=== PATIENT | female | born 1990 | race American Indian/Alaskan Native ===

== ENCOUNTER 2017-12-12 21:55 | Emergency (ER) | payer OTHER ==
[2017-12-12 22:32] VITALS: BP 120/96
[2017-12-13] MEDS ORDERED: TYLENOL ONE (01:10)
[2017-12-13] MEDS ORDERED: TYLENOL PO ONE (01:12)
--- NOTE | 2017-12-13 02:45 | Emergency Department Report ---
Minor Respiratory - HPI Chief Complaint: Upper Respiratory Infection Stated Complaint: FLU LIKE SYMPTOMS Time Seen by Provider: 12/13/17 02:23 Duration: 3 Days Pain Location: Other (headache 6/10) Severity: moderate Minor Respiratory: Yes Rhinorrhea (nasal), Yes Able to Tolerate Fluids, Yes Cough (dry cough), Yes Fever (patient states she had fever the first day but no fever since.), No Sore Throat, No Ear Pain, No Sick Contacts, No Hemoptysis, No Chest Pain, No Shortness of Breath Other History: Patient here with her kids report that she has headache, fever cough, nasal congestion that started 3 days ago. Fever started on the first day and went away. She said she took NyQuil and she is feeling better but she thinks her kids got whatever she had. Headache is 6 out of 10 and comes and goes. Located frontally. Denies any shortness of breath or chest pain. Headache is better after taking NyQuil and Tylenol at home. Headache is worse with coughing. ED Review of Systems ROS: Stated complaint: FLU LIKE SYMPTOMS Other details as noted in HPI Comment: All other systems reviewed and negative Constitutional: chills, fever Eyes: denies: eye pain, eye discharge ENT: congestion. denies: ear pain, throat pain, dental pain, epistaxis Respiratory: cough. denies: orthopnea, shortness of breath, SOB with exertion, SOB at rest, stridor, wheezing Cardiovascular: denies: chest pain, palpitations, dyspnea on exertion, orthopnea , edema, syncope, paroxysmal nocturnal dyspnea ED Past Medical Hx - Past Medical History Previous Medical History?: No - Surgical History Past Surgical History?: No - Social History Smoking Status: Never Smoker Substance Use Type: None - Medications Home Medications: Home Medications Medication Instructions Recorded Confirmed Last Taken Type Acetaminophen [Non-Aspirin Pain 500 mg PO Q6H PRN #12 tablet 12/13/17 Unknown Rx Relief] Benzonatate [Tessalon Perle] 100 mg PO Q8H PRN #15 capsule 12/13/17 Unknown Rx Cetirizine HCl [ZyrTEC] 10 mg PO QAM 14 Days #14 capsule 12/13/17 Unknown Rx Fluticasone [Flonase] 1 spray NS QDAY 14 Days #1 bottle 12/13/17 Unknown Rx Minor Respiratory Exam - Exam General: Vital signs noted. No distress. Alert and acting appropriately. This is a 27-year-old female well-nourished well-developed in no acute distress. HEENT: Yes Moist Mucous Membranes, Yes Rhinorrhea (congestion with erythema), No Pharyngeal Erythema (NO [employer] SCIENCE), No Pharyngeal Exudates (ORAL AIRWAY PATENT), No Conjuctival Injection, No Frontal Tenderness, No Maxillary Tenderness Ear: Neither TM Bulge (lateral TM congested), Neither TM Erythema, Neither EAC Pain, Neither EAC Discharge Neck: Yes Supple (full range of motion and no C-spine tenderness), No Adenopathy Lungs: Yes Good Air Exchange (ctab), Yes Cough (dry cough), No Wheezes, No Ronchi, No Stridor, No Labored Respirations, No Retractions, No Use of Accessory Muscles, No Other Abnormal Lung Sounds Heart: Yes Regular (S1-S2.), No Murmur Abdomen: Yes Normal Bowel Sounds (in all quadrants), No Tenderness (nontender to palpate in all quadrants), No Peritoneal Signs Skin: No Rash, No Edema Neurologic: Alert and oriented, no deficits. Neurological exam: Patient is alert and oriented 3, no facial drooping, speech is clear. GCS is 15. Gait is normal. No motor or sensory deficit. Reflexes are normal. Negative Romberg and negative pronator drift bilaterally. Musculoskeletal: Unremarkable. Extremities/MSK: Clubbing, cyanosis or edema. +2 pulses to all extremities and no neurovascular compromise. Patient with full range of motion to all her extremities. ED Course Vital Signs 12/12/17 22:29 Temperature 97.8 F Pulse Rate 22 L Respiratory 20 Rate Blood Pressure 120/96 O2 Sat by Pulse 97 Oximetry Vital Signs 12/12/1718 22:29 02:45 Temperature 97.8 F Pulse Rate 22 L 88 Respiratory 20 Rate Blood Pressure 120/96 O2 Sat by Pulse 97 Oximetry - Reevaluation(s) Reevaluation #1: 12/13/17 02:47 Patient received Tylenol 1 g by mouth in the emergency room. She was also orally hydrated and she says she is feeling a lot better ED Medical Decision Making - Medical Decision Making ED course: Patient here reports headache, cough congestion and fever over a 3 day period with fever resolved and over the first day. She took NyQuil and Tylenol at home and she is feeling better. Patient is here with her children reported that she thinks that children got sick because she was sick. She received Tylenol 1 g by mouth in emergency room for headache which relieved her headache. Patient orally hydrated in the emergency room. She is stable and says she feels better. Patient found to have sinus inflammation. This was discussed patient and she voiced understanding. Patient discharged home in stable condition with prescription for Zyrtec, Tylenol, Flonase and Tessalon Perles. Follow up with her primary care physician and if she does not have one I told her she can follow-up with outside Medical Center. Patient is neurologic intact. Critical care attestation.: If time is entered above; I have spent that time in minutes in the direct care of this critically ill patient, excluding procedure time. ED Disposition Clinical Impression: Cough with congestion of paranasal sinus Acute nonintractable headache Qualifiers: Headache type: unspecified Qualified Code(s): R51 - Headache Acute inflammation of sinus Qualifiers: Sinusitis location: unspecified location Recurrence: not specified as recurrent Qualified Code(s): J01.90 - Acute sinusitis, unspecified Disposition: DC-01 TO HOME OR SELFCARE Is pt being admited?: No Does the pt Need Aspirin: No Condition: Stable Instructions: Sinusitis (ED), Acute Cough (ED), Acute Headache (ED) Additional Instructions: Please increase her fluid intake Flush nostrils with saline nasal spray F/U with primary care physician as instructed Take Tylenol for pain and/or fever. Prescriptions: Acetaminophen [Non-Aspirin Pain Relief] 500 mg PO Q6H PRN #12 tablet PRN Reason: pain and/or fever Benzonatate [Tessalon Perle] 100 mg PO Q8H PRN #15 capsule PRN Reason: Cough Cetirizine HCl [ZyrTEC] 10 mg PO QAM 14 Days #14 capsule Fluticasone [Flonase] 1 spray NS QDAY 14 Days #1 bottle Referrals: PRIMARY CARE, [Primary Care Provider] - 12/17/17 [facility] [Outside] - 12/17/17 Forms: Work/School Release Form(ED)
== END 2017-12-13 03:49 | disposition home or self-care (01) ==
LOC: ED 21:55
DX: J01.90 Acute sinusitis, unspecified (principal); R51 Headache
CPT/HCPCS: 99282

== ENCOUNTER 2017-12-19 20:24 | Emergency (ER) | payer OTHER ==
[2017-12-19 22:24] VITALS: BP 126/72
[2017-12-19] MEDS ORDERED: PERCOCET 5/325 PO ONE (23:16)
[2017-12-19] MEDS ORDERED: DELTASONE PO ONE (23:17)
[2017-12-19] MEDS ORDERED: BENADRYL PO ONE (23:17)
--- NOTE | 2017-12-19 23:49 | Emergency Department Report ---
ED General Adult HPI - General Chief complaint: Animal Bite Stated complaint: LT MID FINGER PAIN Time Seen by Provider: 12/19/17 23:15 Source: patient Mode of arrival: Ambulatory Limitations: No Limitations - History of Present Illness Initial comments: 27-year-old -[place] female is brought in by her mother for concern of insect bite to the left hand yesterday. Patient reports that she woke up in the morning felt that something may have bitten her as day progressed swelling had worsened as well as pain. Patient denies any fever no chills. She reports that she feels the pain is traveling up her arm. She reports that is on her left hand between the first and second digit. She has no past medical history currently taking any medication besides Tylenol that was given at 3:30 in the Benadryl that was given last night. -: days(s) (1) Location: upper extremity Radiation: extremity Severity scale (0 -10): 10 Quality: burning, stabbing, constant Consistency: constant Improves with: none Associated Symptoms: denies other symptoms Treatments Prior to Arrival: other (Tylenol and Benadryl) - Related Data Previous Rx's Medication Instructions Recorded Last Taken Type Acetaminophen [Non-Aspirin Pain 500 mg PO Q6H PRN #12 tablet 12/13/17 Unknown Rx Relief] Benzonatate [Tessalon Perle] 100 mg PO Q8H PRN #15 capsule 12/13/17 Unknown Rx Cetirizine HCl [ZyrTEC] 10 mg PO QAM 14 Days #14 capsule 12/13/17 Unknown Rx Fluticasone [Flonase] 1 spray NS QDAY 14 Days #1 bottle 12/13/17 Unknown Rx Ibuprofen [Motrin 800 MG tab] 800 mg PO Q8HR PRN #30 tablet 12/20/17 Unknown Rx Sulfamethoxazole/Trimethoprim 1 each PO BID #20 tablet 12/20/17 Unknown Rx [Bactrim DS TAB] Allergies Allergy/AdvReac Type Severity Reaction Status Date / Time No Known Allergies Allergy Verified 11/21/15 07:56 ED Review of Systems ROS: Stated complaint: LT MID FINGER PAIN Other details as noted in HPI Constitutional: denies: chills, fever Eyes: denies: eye pain, eye discharge, vision change ENT: denies: ear pain, throat pain Respiratory: denies: cough, shortness of breath, wheezing Cardiovascular: denies: chest pain, palpitations Endocrine: no symptoms reported Gastrointestinal: denies: abdominal pain, nausea, diarrhea Genitourinary: denies: urgency, dysuria, discharge Musculoskeletal: other (left hand swelling) Skin: change in color (left hand swelling and redness), pruritus, other (pain to the left hand) Neurological: denies: headache, weakness, paresthesias Psychiatric: denies: anxiety, depression Hematological/Lymphatic: denies: easy bleeding, easy bruising ED Past Medical Hx - Past Medical History Previous Medical History?: No - Surgical History Past Surgical History?: No - Social History Smoking Status: Never Smoker Substance Use Type: None - Medications Home Medications: Home Medications Medication Instructions Recorded Confirmed Last Taken Type Acetaminophen [Non-Aspirin Pain 500 mg PO Q6H PRN #12 tablet 12/13/17 Unknown Rx Relief] Benzonatate [Tessalon Perle] 100 mg PO Q8H PRN #15 capsule 12/13/17 Unknown Rx Cetirizine HCl [ZyrTEC] 10 mg PO QAM 14 Days #14 capsule 12/13/17 Unknown Rx Fluticasone [Flonase] 1 spray NS QDAY 14 Days #1 bottle 12/13/17 Unknown Rx Ibuprofen [Motrin 800 MG tab] 800 mg PO Q8HR PRN #30 tablet 12/20/17 Unknown Rx Sulfamethoxazole/Trimethoprim 1 each PO BID #20 tablet 12/20/17 Unknown Rx [Bactrim DS TAB] ED Physical Exam - General Limitations: No Limitations General appearance: alert, in no apparent distress, other (tearful) - Head Head exam: Present: atraumatic, normocephalic - Eye Eye exam: Present: normal appearance - ENT ENT exam: Present: mucous membranes moist - Expanded Upper Extremity Exam Left Shoulder Exam: Present: normal inspection, full ROM Upper Arm exam: Present: normal inspection, full ROM Elbow exam: Present: normal inspection, full ROM Forearm Wrist exam: Present: normal inspection, full ROM Hand Wrist exam: Present: tenderness, swelling, erythema, other (pain greater in first and second digit with palpitation) Neuro motor exam: Present: wrist extension intact, thumb opposition intact, thumb adduction intact, fingers 2-5 abduction intact Vascular: Present: normal capillary refill. Absent: vascular compromise - Neurological Exam Neurological exam: Present: alert, oriented X3 - Psychiatric Psychiatric exam: Present: normal affect, normal mood - Skin Skin exam: Present: warm, dry, erythema (left dorsum hand) ED Course Vital Signs 12/19/17 22:21 Temperature 98.3 F Pulse Rate 85 Blood Pressure 126/72 O2 Sat by Pulse 99 Oximetry ED Medical Decision Making - Medical Decision Making Patient's been evaluated by this provider fast track. Discussed the patient of her pain medication x-ray Benadryl and prednisone. We'll reevaluate after having studies performed. Critical care attestation.: If time is entered above; I have spent that time in minutes in the direct care of this critically ill patient, excluding procedure time. ED Disposition Clinical Impression: Localized swelling on left hand Insect bite Qualifiers: Encounter type: initial encounter Qualified Code(s): W57.XXXA - Bitten or stung by nonvenomous insect and other nonvenomous arthropods, initial encounter Disposition: - TO HOME OR SELFCARE Is pt being admited?: No Does the pt Need Aspirin: No Condition: Stable Additional Instructions: Please take ibuprofen as prescribed. He can continue with the Benadryl over-the -counter. Please follow up with her primary care provider if symptoms persist or gets worse. I recommend elevating your hand he can apply ice. Prescriptions: Ibuprofen [Motrin 800 MG tab] 800 mg PO Q8HR PRN #30 tablet PRN Reason: Pain Sulfamethoxazole/Trimethoprim [Bactrim DS TAB] 1 each PO BID #20 tablet Referrals: PRIMARY CARE, [Primary Care Provider] - 3-5 Days your,provider [Other] - 3-5 Days Forms: Accompanied Note, Work/School Release Form(ED)
--- NOTE | 2017-12-20 00:17 | XRay Report ---
FINAL REPORT PROCEDURE: XR HAND 2V LT TECHNIQUE: Left hand radiographs, AP, lateral, and oblique views. CPT 10260 HISTORY: left hand swollen COMPARISON: No prior studies are available for comparison. FINDINGS: Fracture (s) and/or Dislocation(s): None . Alignment: Normal . Joint space(s): Normal . Soft tissues: There is generalized soft tissue swelling.. Bone mineralization: Normal . Foreign bodies: None . IMPRESSION: There is no acute bony abnormality. There is generalized soft tissue swelling..
== END 2017-12-20 01:25 | disposition home or self-care (01) ==
LOC: ED 20:24
DX: S60.562A Insect bite (nonvenomous) of left hand, initial encounter (principal); M79.89 Other specified soft tissue disorders; W57.XXXA Bitten or stung by nonvenomous insect and other nonvenomous arthropods, initial encounter; Y93.89 Activity, other specified; Y99.8 Other external cause status; Y92.89 Other specified places as the place of occurrence of the external cause
CPT/HCPCS: 73120; 99283; J7512

== ENCOUNTER 2017-12-21 06:03 | Emergency (ER) | payer OTHER ==
[2017-12-21] MEDS ORDERED: TORADOL ONE (06:17)
[2017-12-21] MEDS ORDERED: TORADOL IV ONE (06:24)
[2017-12-21 06:51] LABS: Basophils % (Auto) 0.1 % (0.0-1.8); Eosinophils % (Auto) 0.1 % (0.0-4.3); Hematocrit 29.8 % (30.3-42.9); Hemoglobin 9.9 gm/dl (10.1-14.3); Lymphocytes # (Auto) 1.7 K/mm3 (1.2-5.4); Lymphocytes % (Auto) 18.3 % (13.4-35.0); Mean Corpuscular HGB Conc 33 % (30-34); Mean Corpuscular Hemoglobin 28 pg (28-32); Mean Corpuscular Volume 85 fl (79-97); Monocytes # (Auto) 0.5 K/mm3 (0.0-0.8); Monocytes % (Auto) 5.5 % (0.0-7.3); Platelet Count 283 K/mm3 (140-440); Red Cell Distribution Width 16.6 % (13.2-15.2)
[2017-12-21 07:01] LABS: BUN/Creatinine Ratio 11; Blood Urea Nitrogen 8 mg/dL (7-17); Hemolysis Index 2
[2017-12-21] MEDS ORDERED: CLEOCIN 900 MG/50 mL 900 MG/50 ML BAG IV ONE (10:53)
[2017-12-21] MEDS ORDERED: ZOFRAN IV ONE (10:53)
[2017-12-21] MEDS ORDERED: NORCO 5/325 PO ONE (10:53)
[2017-12-21] MEDS ORDERED: MORPHINE IV ONE (10:53)
--- NOTE | 2017-12-21 10:59 | Emergency Department Report ---
- General Chief Complaint: Extremity Injury, Upper Stated Complaint: LT HAND PAIN/SWELLING Time Seen by Provider: 12/21/17 10:48 Source: patient, family Mode of arrival: Ambulatory Limitations: No Limitations - History of Present Illness Initial Comments: left hand finger infection, now with cellulitis small boil RLQ -: Gradual, week(s) (1) Extremity Location: Left: Hand Place: home Patient Tetanus UTD: No (greater than 5 years) Context: other (small pimple then worsened, seen in ED on Sunday, bactrim initiated) Associated Symptoms: pain - Related Data Previous Rx's Medication Instructions Recorded Last Taken Type Acetaminophen [Non-Aspirin Pain 500 mg PO Q6H PRN #12 tablet 12/13/17 Unknown Rx Relief] Benzonatate [Tessalon Perle] 100 mg PO Q8H PRN #15 capsule 12/13/17 Unknown Rx Cetirizine HCl [ZyrTEC] 10 mg PO QAM 14 Days #14 capsule 12/13/17 Unknown Rx Fluticasone [Flonase] 1 spray NS QDAY 14 Days #1 bottle 12/13/17 Unknown Rx Ibuprofen [Motrin 800 MG tab] 800 mg PO Q8HR PRN #30 tablet 12/20/17 Unknown Rx Sulfamethoxazole/Trimethoprim 1 each PO BID #20 tablet 12/20/17 Unknown Rx [Bactrim DS TAB] Cephalexin [Keflex] 500 mg PO Q6HR 10 Days #40 capsule 12/21/17 Unknown Rx oxyCODONE /ACETAMINOPHEN [Percocet 1 tab PO Q6HR PRN #15 tablet 12/21/17 Unknown Rx 5/325] Allergies Allergy/AdvReac Type Severity Reaction Status Date / Time No Known Allergies Allergy Verified 11/21/15 07:56 ED Review of Systems ROS: Stated complaint: LT HAND PAIN/SWELLING Other details as noted in HPI Comment: All other systems reviewed and negative Constitutional: denies: fever, malaise Respiratory: denies: cough Cardiovascular: denies: chest pain ED Past Medical Hx - Past Medical History Previous Medical History?: No - Surgical History Past Surgical History?: Yes Additional Surgical History: tubaligation - Social History Smoking Status: Never Smoker Substance Use Type: None - Medications Home Medications: Home Medications Medication Instructions Recorded Confirmed Last Taken Type Acetaminophen [Non-Aspirin Pain 500 mg PO Q6H PRN #12 tablet 12/13/17 Unknown Rx Relief] Benzonatate [Tessalon Perle] 100 mg PO Q8H PRN #15 capsule 12/13/17 Unknown Rx Cetirizine HCl [ZyrTEC] 10 mg PO QAM 14 Days #14 capsule 12/13/17 Unknown Rx Fluticasone [Flonase] 1 spray NS QDAY 14 Days #1 bottle 12/13/17 Unknown Rx Ibuprofen [Motrin 800 MG tab] 800 mg PO Q8HR PRN #30 tablet 12/20/17 Unknown Rx Sulfamethoxazole/Trimethoprim 1 each PO BID #20 tablet 12/20/17 Unknown Rx [Bactrim DS TAB] Cephalexin [Keflex] 500 mg PO Q6HR 10 Days #40 capsule 12/21/17 Unknown Rx oxyCODONE /ACETAMINOPHEN [Percocet 1 tab PO Q6HR PRN #15 tablet 12/21/17 Unknown Rx 5/325] ED Physical Exam - General Limitations: No Limitations General appearance: alert, in no apparent distress - Head Head exam: Present: atraumatic, normocephalic - Eye Eye exam: Present: normal appearance - ENT ENT exam: Present: mucous membranes moist - Neck Neck exam: Present: normal inspection - Respiratory Respiratory exam: Present: normal lung sounds bilaterally. Absent: respiratory distress, wheezes, rales, rhonchi - Cardiovascular Cardiovascular Exam: Present: regular rate, normal rhythm. Absent: systolic murmur, diastolic murmur, rubs, gallop - GI/Abdominal GI/Abdominal exam: Present: soft, normal bowel sounds. Absent: distended, tenderness, guarding, rebound - Extremities Exam Extremities exam: Present: normal inspection - Back Exam Back exam: Present: normal inspection - Neurological Exam Neurological exam: Present: alert, oriented X3 - Psychiatric Psychiatric exam: Present: normal affect, normal mood - Skin Skin exam: Present: warm, dry, intact, normal color. Absent: rash - Other Other exam information: 2 cm abscess proximal 3rd finger volar aspect swelling limited to proximal phalanx, mild hand edema without involvement of other fingers, 3rd finger held in flexed position, no fusiform swelling, no tenderness of the flexor tendon ED Course Vital Signs 12/21/17 12/21/17 12/21/17 06:05 06:26 11:13 Temperature 98 F 98.2 F Pulse Rate 105 H 93 H Respiratory 20 20 20 Rate Blood Pressure 126/88 Blood Pressure 139/101 [Right] O2 Sat by Pulse 99 98 Oximetry - I & D Left Finger Type of Procedure: Simple Site: left finger middle, proximal phalanx Blade Size: 11 I & D Procedure: betadine prep Progress: Verbal consent explaining the risks alternatives benefits obtained per patient. Patient consented to digital block and incision and drainage. I used 5 mL of 1% lidocaine without epinephrine to anesthetize the area performed digital block. The abscess was draining spontaneously prior to injection friom 5 mm skin opening just proximal to the flexor crease at the MCP. After injection copious amount of purulent drainage expressed from the wound. I made a superficial 1 cm horizontal incision and use sterile instrument (needle taylor) to gently break up inoculations approximately 5 mL total PURULENCE drainage was expressed. Nurse provided a sterile bandage and dressing. Wound culture was obtained. After procedure, patient was able to flex at the MCP/PIP/DIP. ED Medical Decision Making - Lab Data Result diagrams: 12/21/17 06:37 12/21/17 06:37 - Medical Decision Making Ms. Sexton has a finger abscess with hand cellulitis. No indication of flexor tenosynovitis at this time. Given IV clindamycina and tdap. I&D performed with evacuated 5 ml of pus. Patient will return in 2 days for skin check. I encouraged her to continue Bactrim. I have prescribed Percocet and Keflex. Patient understands that she has a small area of cellulitis with small pustule in the right lower quadrant which will be addressed with the same antibiotics. Critical care attestation.: If time is entered above; I have spent that time in minutes in the direct care of this critically ill patient, excluding procedure time. ED Disposition Clinical Impression: Abscess of finger of left hand, Cellulitis and abscess of hand, Cellulitis of trunk Disposition: DC-01 TO HOME OR SELFCARE Is pt being admited?: No Does the pt Need Aspirin: No Condition: Stable Instructions: Abscess (ED), Cellulitis (ED) Additional Instructions: Please return to ED in 2 days for a skin check. Prescriptions: Cephalexin [Keflex] 500 mg PO Q6HR 10 Days #40 capsule oxyCODONE /ACETAMINOPHEN [Percocet 5/325] 1 tab PO Q6HR PRN #15 tablet PRN Reason: Pain Time of Disposition: 12:26
[2017-12-21] MEDS ORDERED: BOOSTRIX IM ONE (11:00)
[2017-12-21] MEDS ORDERED: XYLOCAINE 1% 20 mL INFILTRATI ONE (11:33)
[2017-12-21] MEDS ORDERED: MOTRIN PO ONE (12:15)
[2017-12-21 12:58] VITALS: BP 128/81
== END 2017-12-21 12:58 | disposition home or self-care (01) ==
LOC: ED 06:03
DX: L02.512 Cutaneous abscess of left hand (principal); L03.114 Cellulitis of left upper limb; L03.319 Cellulitis of trunk, unspecified; Z98.51 Tubal ligation status
CPT/HCPCS: 10060; 36415; 80048; 84703; 85025; 87076; 87116; 87186; 90471; 90715; 96365; 96375; 99283; J1885; J2270; J2405

== ENCOUNTER 2020-05-10 10:58 | Emergency (ER) | payer SELFPAY ==
[2020-05-10 11:06] VITALS: BP 127/92
[2020-05-10] MEDS ORDERED: HYDROcodone/ACETAMINOPHEN 10-325MG TAB PO ONE (11:18)
--- NOTE | 2020-05-10 11:23 | Emergency Department Report ---
ED Lower Extremity HPI - General Chief Complaint: Extremity Injury, Lower Stated Complaint: RIGHT KNEE PAIN Time Seen by Provider: 05/10/20 11:13 Source: patient Mode of arrival: Wheelchair Limitations: No Limitations - History of Present Illness Initial Comments: This is a 29-year-old female nontoxic, well nourished in appearance, no acute signs of distress presents to the ED with c/o of right knee pain. Patient stated she had a fall and injured 2 days ago. Patient denies any other trauma or injuries. Denies decreased ROM, joint swelling, redness, or abnormal gait. Denies any fever, chills, nausea, vomiting, headache, stiff neck, chest pain or shortness of breath. Patient denies any numbness or tingling. Denies any allergies. MD Complaint: knee injury -: days(s) Injury: Knee: Right Severity: mild Severity scale (0 -10): 8 Improves With: immobilization Worsens With: weight bearing, movement, palpation Context: fall Associated Symptoms: snap/pop sensation, swelling, unable to bear weight. denies: numbness, tingling, able to partially bear weight - Related Data Previous Rx's Medication Instructions Recorded Last Taken Type Acetaminophen [Non-Aspirin Pain 500 mg PO Q6H PRN #12 tablet 12/13/17 Unknown Rx Relief] Benzonatate [Tessalon Perle] 100 mg PO Q8H PRN #15 capsule 12/13/17 Unknown Rx Cetirizine HCl [ZyrTEC] 10 mg PO QAM 14 Days #14 capsule 12/13/17 Unknown Rx Fluticasone [Flonase] 1 spray NS QDAY 14 Days #1 bottle 12/13/17 Unknown Rx Ibuprofen [Motrin 800 MG tab] 800 mg PO Q8HR PRN #30 tablet 12/20/17 Unknown Rx Sulfamethoxazole/Trimethoprim 1 each PO BID #20 tablet 12/20/17 Unknown Rx [Bactrim DS TAB] cephALEXin [Keflex] 500 mg PO Q6HR 10 Days #40 capsule 12/21/17 Unknown Rx oxyCODONE /ACETAMINOPHEN [Percocet 1 tab PO Q6HR PRN #15 tablet 12/21/17 Unknown Rx 5/325] Naproxen 500 mg PO Q12H PRN #12 tablet 05/10/20 Unknown Rx Allergies Allergy/AdvReac Type Severity Reaction Status Date / Time No Known Allergies Allergy Verified 11/21/15 07:56 ED Review of Systems ROS: Stated complaint: RIGHT KNEE PAIN Other details as noted in HPI Constitutional: denies: chills, fever Eyes: denies: eye pain, eye discharge, vision change ENT: denies: ear pain, throat pain Respiratory: denies: cough, shortness of breath, wheezing Cardiovascular: denies: chest pain, palpitations Endocrine: no symptoms reported Gastrointestinal: denies: abdominal pain, nausea, diarrhea Genitourinary: denies: urgency, dysuria, discharge Musculoskeletal: denies: back pain, joint swelling, arthralgia Skin: denies: rash, lesions Neurological: denies: headache, weakness, paresthesias Psychiatric: denies: anxiety, depression Hematological/Lymphatic: denies: easy bleeding, easy bruising ED Past Medical Hx - Past Medical History Previous Medical History?: No - Surgical History Past Surgical History?: Yes Additional Surgical History: tubal ligation. C section - Social History Smoking Status: Never Smoker Substance Use Type: None - Medications Home Medications: Home Medications Medication Instructions Recorded Confirmed Last Taken Type Acetaminophen [Non-Aspirin Pain 500 mg PO Q6H PRN #12 tablet 12/13/17 Unknown Rx Relief] Benzonatate [Tessalon Perle] 100 mg PO Q8H PRN #15 capsule 12/13/17 Unknown Rx Cetirizine HCl [ZyrTEC] 10 mg PO QAM 14 Days #14 capsule 12/13/17 Unknown Rx Fluticasone [Flonase] 1 spray NS QDAY 14 Days #1 bottle 12/13/17 Unknown Rx Ibuprofen [Motrin 800 MG tab] 800 mg PO Q8HR PRN #30 tablet 12/20/17 Unknown Rx Sulfamethoxazole/Trimethoprim 1 each PO BID #20 tablet 12/20/17 Unknown Rx [Bactrim DS TAB] cephALEXin [Keflex] 500 mg PO Q6HR 10 Days #40 capsule 12/21/17 Unknown Rx oxyCODONE /ACETAMINOPHEN [Percocet 1 tab PO Q6HR PRN #15 tablet 12/21/17 Unknown Rx 5/325] Naproxen 500 mg PO Q12H PRN #12 tablet 05/10/20 Unknown Rx ED Physical Exam - General Limitations: No Limitations General appearance: alert, in no apparent distress - Head Head exam: Present: atraumatic, normocephalic - Eye Eye exam: Present: normal appearance - Neck Neck exam: Present: normal inspection, full ROM. Absent: tenderness, meningismus, lymphadenopathy - Extremities Exam Extremities exam: Present: full ROM, tenderness, normal capillary refill. Absent: joint swelling, calf tenderness - Expanded Lower Extremity Exam Right Hip exam: Present: normal inspection, full ROM. Absent: tenderness, swelling Upper Leg exam: Present: normal inspection, full ROM. Absent: tenderness, swelling Knee exam: Present: full ROM, tenderness, swelling, ecchymosis, full knee extension. Absent: abrasion, laceration, deformity, crepidus, dislocation, erythema, effusion, pain w/ pronation/supination, posterior draw sign, pain/laxity with valgus, pain/laxity with varus Lower Leg exam: Present: normal inspection, full ROM. Absent: tenderness, swelling Ankle exam: Present: normal inspection, full ROM. Absent: tenderness, swelling Foot/Toe exam: Present: normal inspection, full ROM. Absent: tenderness, swelli ng Neuro vascular tendon exam: Present: no vascular compromise Gait: Positive: unable to bear weight - Back Exam Back exam: Present: normal inspection, full ROM. Absent: tenderness, CVA tenderness (R), CVA tenderness (L), muscle spasm, paraspinal tenderness, vertebral tenderness, rash noted - Neurological Exam Neurological exam: Present: alert, oriented X3, normal gait - Psychiatric Psychiatric exam: Present: normal affect, normal mood - Skin Skin exam: Present: warm, dry, intact, normal color. Absent: rash ED Course Vital Signs 05/10/20 05/10/20 05/10/20 11:03 11:08 11:22 Temperature 98.4 F 98.4 F 98.4 F Pulse Rate 89 108 H Respiratory 18 18 18 Rate Blood Pressure 127/92 127/92 Blood Pressure 127/92 [Right] O2 Sat by Pulse 100 100 Oximetry 05/10/20 12:11 Temperature Pulse Rate Respiratory 18 Rate Blood Pressure Blood Pressure [Right] O2 Sat by Pulse Oximetry - Reevaluation(s) Reevaluation #1: 05/10/20 11:22 Patient is speaking in full sentences with no signs of distress noted. ED Lower Extremity MDM - Radiology Data Referring Physician: GUY MERCER Patient Name: MIRTHA KULKARNI Date of : 1990 Sex: Female Report Date: 2020-05-10 Report Status: Finalized [facility] [address] [place] [address] XRay Report Signed Patient: MIRTHA KULKARNI MR#: [id number] : 1990 Acct:[id number] Age/Sex: 29 / F ADM Date: 05/10/20 Loc: ED Attending Dr: Ordering Physician: GUY MERCER NP Date of Service: 05/10/20 Procedure(s): XR knee 3V RT Accession Number(s): [id number] cc: GUY MERCER NP Fluoro Time In Minutes: RIGHT KNEE 3 VIEWS INDICATION: knee pain. COMPARISON: No relevant prior imaging study available. FINDINGS: No acute fracture or dislocation is seen. Moderate joint effusion is noted. Significant degenerative changes. IMPRESSION: 1. Moderate joint effusion. No acute skeletal abnormality. Signer Name: Isacc Jenkins MD Signed: 05/10/2020 12:22 PM Workstation Name: [id number] Transcribed By: CHILANGO Dictated By: Isacc Jenkins MD Electronically Authenticated By: Isacc Jenkins MD Signed Date/Time: 05/10/20 1222 DD/ 1221 TD/TT: - Medical Decision Making This is a 29-year-old female that presents with right knee strain. Patient is stable and was examined by me. Patient has a knee immbolizer and crutches presnet. Patient received norco which stated symptoms of pain is well managed and mother will drive the patien home after discharge due to possible drowiness. Pt notified of the xray results with no quesitons noted by the patient. Patient was instructed to Follow-up with a orthopedic doctor in 3-5 days or if symptoms worsen and continue return to emergency room as soon as possible. At time of discharge, the patient does not seem toxic or ill in appearance. No acute signs of distress noted. Patient agrees to discharge treatment plan of care. No further questions noted by the patient. Critical care attestation.: If time is entered above; I have spent that time in minutes in the direct care of this critically ill patient, excluding procedure time. ED Disposition Clinical Impression: Strain of right knee Qualifiers: Encounter type: initial encounter Qualified Code(s): S86.911A - Strain of unspecified muscle(s) and tendon(s) at lower leg level, right leg, initial encounter Disposition: TO HOME OR SELFCARE Is pt being admited?: No Does the pt Need Aspirin: No Condition: Stable Instructions: Knee Pain (ED), Knee Immobilizer (ED), RICE Therapy (ED) Additional Instructions: Patient was instructed to Follow-up with a orthopedic doctor in 3-5 days or if symptoms worsen and continue return to emergency room as soon as possible. no physical activity until cleared by Orthopedic doctor. Prescriptions: Naproxen 500 mg PO Q12H PRN #12 tablet PRN Reason: Pain , Severe (7-10) Referrals: PRIMARY CARE, [Primary Care Provider] - 3-5 Days XANDER CARIAS MD [Staff Physician] - 3-5 Days Forms: Work/School Release Form(ED)
--- NOTE | 2020-05-10 12:26 | XRay Report ---
RIGHT KNEE 3 VIEWS INDICATION: knee pain. COMPARISON: No relevant prior imaging study available. FINDINGS: No acute fracture or dislocation is seen. Moderate joint effusion is noted. Significant degenerative changes. IMPRESSION: 1. Moderate joint effusion. No acute skeletal abnormality. Signer Name: Isacc Jenkins MD Signed: 05/10/2020 12:22 PM Workstation Name: [id number]
== END 2020-05-10 13:00 | disposition home or self-care (01) ==
LOC: ED 10:58
DX: S86.911A Strain of unspecified muscle(s) and tendon(s) at lower leg level, right leg, initial encounter (principal); Z79.899 Other long term (current) drug therapy; Z98.890 Other specified postprocedural states; Z98.51 Tubal ligation status; W18.30XA Fall on same level, unspecified, initial encounter; Y93.89 Activity, other specified; Y92.89 Other specified places as the place of occurrence of the external cause; Y99.8 Other external cause status

== ENCOUNTER 2021-02-28 11:35 | Emergency (ER) | payer OTHER ==
[2021-02-28 12:11] VITALS: BP 126/85
--- NOTE | 2021-02-28 12:17 | Emergency Department Report ---
ED Lower Extremity HPI - General Chief Complaint: Extremity Injury, Lower Stated Complaint: RT KNEE PAINS Time Seen by Provider: 02/28/21 11:46 Source: patient Mode of arrival: Ambulatory Limitations: No Limitations - History of Present Illness Initial Comments: This is a 30-year-old female nontoxic, well nourished in appearance, no acute signs of distress presents to the ED with c/o of pain medication for acute on chronic right knee pain 9 months. Patient stated had a injury 9 months ago. Patient does follow-up with a orthopedic doctor but stated was unable to make an appointment for pain control. Patient does have a knee immobilizer that she typically wears. 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 Patient otherwise denies any acute trauma or injuries. Denies any calf pain or leg swelling. Patient denies any numbness, tingling, fever, chills, nausea, vomiting, chest pain, shortness of breath, headache, stiff neck. Patient denies any joint swelling or joint redness. Patient denies decreased range of motion. Patient stated has decreased gait due to pain. Patient denies any allergies or significant past medical history. MD Complaint: knee injury -: month(s) Injury: Knee: Right Severity scale (0 -10): 3 Improves With: immobilization Worsens With: weight bearing, movement, palpation Associated Symptoms: ambulatory. denies: snap/pop sensation, swelling, numbness, tingling, unable to bear weight, able to partially bear weight - Related Data Previous Rx's Medication Instructions Recorded Last Taken Type Acetaminophen [Non-Aspirin Pain 500 mg PO Q6H PRN #12 tablet 12/13/17 Unknown Rx Relief] Benzonatate [Tessalon Perle] 100 mg PO Q8H PRN #15 capsule 12/13/17 Unknown Rx Cetirizine HCl [ZyrTEC] 10 mg PO QAM 14 Days #14 capsule 12/13/17 Unknown Rx Fluticasone [Flonase] 1 spray NS QDAY 14 Days #1 bottle 12/13/17 Unknown Rx Ibuprofen [Motrin 800 MG tab] 800 mg PO Q8HR PRN #30 tablet 12/20/17 Unknown Rx Sulfamethoxazole/Trimethoprim 1 each PO BID #20 tablet 12/20/17 Unknown Rx [Bactrim DS TAB] cephALEXin [Keflex] 500 mg PO Q6HR 10 Days #40 capsule 12/21/17 Unknown Rx oxyCODONE /ACETAMINOPHEN [Percocet 1 tab PO Q6HR PRN #15 tablet 12/21/17 Unknown Rx 5/325] HYDROcodone/APAP 10-325 [[place] 1 each PO Q8HR PRN #6 tablet 05/10/20 Unknown Rx 10/325] Naproxen 500 mg PO Q12H PRN #12 tablet 05/10/20 Unknown Rx Naproxen 500 mg PO Q12H PRN #12 tablet 02/28/21 Unknown Rx Allergies Allergy/AdvReac Type Severity Reaction Status Date / Time No Known Allergies Allergy Verified 02/28/21 11:47 ED Review of Systems ROS: Stated complaint: RT KNEE PAINS Other details as noted in HPI Comment: All other systems reviewed and negative Constitutional: denies: chills, fever Eyes: denies: eye pain, eye discharge, vision change ENT: denies: ear pain, throat pain Respiratory: denies: cough, shortness of breath, wheezing Cardiovascular: denies: chest pain, palpitations Endocrine: no symptoms reported Gastrointestinal: denies: abdominal pain, nausea, diarrhea Genitourinary: denies: urgency, dysuria, discharge Musculoskeletal: denies: back pain, joint swelling, arthralgia Skin: denies: rash, lesions Neurological: denies: headache, weakness, paresthesias Psychiatric: denies: anxiety, depression Hematological/Lymphatic: denies: easy bleeding, easy bruising ED Past Medical Hx - Surgical History Additional Surgical History: tubal ligation. C section - Social History Smoking Status: Never Smoker Substance Use Type: None - Medications Home Medications: Home Medications Medication Instructions Recorded Confirmed Last Taken Type Acetaminophen [Non-Aspirin Pain 500 mg PO Q6H PRN #12 tablet 12/13/17 Unknown Rx Relief] Benzonatate [Tessalon Perle] 100 mg PO Q8H PRN #15 capsule 12/13/17 Unknown Rx Cetirizine HCl [ZyrTEC] 10 mg PO QAM 14 Days #14 capsule 12/13/17 Unknown Rx Fluticasone [Flonase] 1 spray NS QDAY 14 Days #1 bottle 12/13/17 Unknown Rx Ibuprofen [Motrin 800 MG tab] 800 mg PO Q8HR PRN #30 tablet 12/20/17 Unknown Rx Sulfamethoxazole/Trimethoprim 1 each PO BID #20 tablet 12/20/17 Unknown Rx [Bactrim DS TAB] cephALEXin [Keflex] 500 mg PO Q6HR 10 Days #40 capsule 12/21/17 Unknown Rx oxyCODONE /ACETAMINOPHEN [Percocet 1 tab PO Q6HR PRN #15 tablet 12/21/17 Unknown Rx 5/325] HYDROcodone/APAP 10-325 [[place] 1 each PO Q8HR PRN #6 tablet 05/10/20 Unknown Rx 10/325] Naproxen 500 mg PO Q12H PRN #12 tablet 05/10/20 Unknown Rx Naproxen 500 mg PO Q12H PRN #12 tablet 02/28/21 Unknown Rx ED Physical Exam - General Limitations: No Limitations General appearance: alert, in no apparent distress - Head Head exam: Present: atraumatic, normocephalic - Eye Eye exam: Present: normal appearance - Neck Neck exam: Present: normal inspection, full ROM - Respiratory Respiratory exam: Absent: respiratory distress - Cardiovascular Cardiovascular Exam: Present: regular rate - Extremities Exam Extremities exam: Present: normal inspection, full ROM, tenderness, normal capillary refill. Absent: pedal edema, joint swelling, calf tenderness - Expanded Lower Extremity Exam Right Hip exam: Present: normal inspection, full ROM. Absent: tenderness, swelling Upper Leg exam: Present: normal inspection, full ROM. Absent: tenderness, swelling Knee exam: Present: normal inspection, full ROM, tenderness, full knee extension. Absent: swelling, abrasion, laceration, ecchymosis, deformity, crepidus, dislocation, erythema, effusion, pain w/ pronation/supination, posterior draw sign, pain/laxity with valgus, pain/laxity with varus Lower Leg exam: Present: normal inspection, full ROM. Absent: tenderness, swelling, abrasion, laceration, ecchymosis, deformity, crepidus, dislocation, erythema, palpable cord, Gustavo's sign Ankle exam: Present: normal inspection, full ROM. Absent: tenderness, swelling, abrasion, laceration, ecchymosis, deformity, crepidus, dislocation, erythema, anterior draw sign Foot/Toe exam: Present: normal inspection, full ROM. Absent: tenderness, swelling, abrasion, laceration, ecchymosis, deformity, crepidus, dislocation, erythema, amputation, puncture wound, foreign body, calcaneal tenderness, tenderness at base of 5th metatarsal, nail avulsion, subungual hematoma Neuro vascular tendon exam: Present: no vascular compromise Gait: Positive: observed and normal 1 - Pain here - Back Exam Back exam: Present: normal inspection, full ROM. Absent: tenderness, CVA tenderness (R), CVA tenderness (L), muscle spasm, paraspinal tenderness, vertebral tenderness, rash noted - Neurological Exam Neurological exam: Present: alert, oriented X3, normal gait - Psychiatric Psychiatric exam: Present: normal affect, normal mood - Skin Skin exam: Present: warm, dry, intact, normal color. Absent: rash ED Course Vital Signs 02/28/21 11:45 Temperature 98.4 F Pulse Rate 87 Respiratory 13 Rate Blood Pressure 126/85 O2 Sat by Pulse 100 Oximetry - Reevaluation(s) Reevaluation #1: 02/28/21 12:17 Patient is speaking in full sentences with no signs of distress noted. ED Lower Extremity MDM - Medical Decision Making This is a 30-year-old female that presents with chronic right knee pain. Patient is stable and was examined by me. Patient is referred to a orthopedic for appropriate follow-up and treatment. I will discharge patient on naproxen due to requesting for pain control. Patient does have an immobilizer. Patient does have normal gait with no tenderness and no joint swelling. No ecchymosis. no joint redness or swelling. No calf pain or tenderness. No leg swelling. No signs of DVT. Not warm to touch. No signs of cellulites present. Patient was instructed to RICE therapy. At time of discharge, the patient does not seem toxic or ill in appearance. No acute signs of distress noted. Patient agrees to discharge treatment plan of care. No further questions noted by the patient. Critical care attestation.: If time is entered above; I have spent that time in minutes in the direct care of this critically ill patient, excluding procedure time. ED Disposition Clinical Impression: Chronic pain of right knee Disposition: DC- TO HOME OR SELFCARE Is pt being admited?: No Does the pt Need Aspirin: No Condition: Stable Instructions: Chronic Knee Pain, Adult Additional Instructions: Follow-up with a orthopedic doctor in 3-5 days or if symptoms worsen and continue return to emergency room as soon as possible. No physical activity that extremity until cleared by orthopedic doctor Prescriptions: Naproxen 500 mg PO Q12H PRN #12 tablet PRN Reason: Pain , Severe (7-10) Referrals: PRIMARY CAREMD [Primary Care Provider] - 3-5 Days XANDER CARIAS MD [Staff Physician] - 3-5 Days Forms: Work/School Release Form(ED) Time of Disposition: 12:19
== END 2021-02-28 14:51 | disposition home or self-care (01) ==
LOC: ED 11:35
DX: M25.561 Pain in right knee (principal); G89.29 Other chronic pain; Z98.51 Tubal ligation status; Z98.890 Other specified postprocedural states; Z79.1 Long term (current) use of non-steroidal anti-inflammatories (NSAID); Z79.899 Other long term (current) drug therapy
CPT/HCPCS: 99282